=== PATIENT | female | born 1950 | race Caucasian/White ===

== ENCOUNTER 2016-12-04 18:31 | Emergency (ER) | payer MEDICAID, SELFPAY ==
[2016-12-04 18:40] VITALS: BP 144/85; PULSE 70; RESP 16; TEMP 98.8; O2SAT 100
--- NOTE | 2016-12-04 20:55 | ED PDOC ---
Lower Extremity Pain/Injury Time Seen by Provider: 12/04/16 19:30 Chief Complaint (Nursing): Lower Extremity Problem/Injury Chief Complaint (Provider): Left knee pain History Per: Patient History/Exam Limitations: no limitations Onset/Duration Of Symptoms: Days (3) Current Symptoms Are (Timing): Still Present Additional Complaint(s): Patient is a 66 y/o female with a past medical history of arthritis and hypertension presenting to the emergency department for worsening left leg pain ongoing for three days. Reports moderate pain behind her left knee, stating that the pain radiates down from her left knee to her foot. Mild swelling noted. Also notes taking two Tylenols today without any significant relief. Denies trauma or other complaints. PCP: Dr. Nayeli Thomas Past Medical History Reviewed: Historical Data, Nursing Documentation, Vital Signs Vital Signs: Last Vital Signs Temp 98.8 F 12/04/16 18:37 Pulse 70 12/04/16 18:37 Resp 16 12/04/16 18:37 BP 144/85 12/04/16 18:37 Pulse Ox 100 12/04/16 18:37 - Medical History PMH: HTN - Surgical History Other surgeries: masectomy - Family History Family History: States: Unknown Family Hx - Social History Current smoker - smoking cessation education provided: No Ex-Smoker (has not smoked in the last 12 months): No Alcohol: None Drugs: Denies - Home Medications Home Medications: Ambulatory Orders Medication Instructions Recorded Cane 1 each MC DAILY #1 each 12/04/16 Naproxen 1 tab PO Q12 PRN #14 tab 12/04/16 - Allergies Allergies/Adverse Reactions: Allergies Allergy/AdvReac Type Severity Reaction Status Date / Time No Known Allergies Allergy Verified 12/04/16 18:36 Review of Systems ROS Statement: Except As Marked, All Systems Reviewed And Found Negative Musculoskeletal: Positive for: Leg Pain (left leg pain and swelling) Physical Exam - Reviewed Nursing Documentation Reviewed: Yes Vital Signs Reviewed: Yes - Physical Exam Appears: Positive for: Well, Non-toxic, No Acute Distress Head Exam: Positive for: ATRAUMATIC, NORMAL INSPECTION, NORMOCEPHALIC Skin: Positive for: Normal Color, Warm, Dry Neck: Positive for: Normal Cardiovascular/Chest: Positive for: Regular Rate, Rhythm Respiratory: Negative for: Accessory Muscle Use, Respiratory Distress Extremity: Positive for: Normal ROM (able to flex and extend leg but with pain) , Tenderness (posteriorly to left leg, with minimal bony tenderness to knee), Swelling (moderate swelling noted to anterior aspect of left leg below knee). Negative for: Other (no erythema noted. negative janis's sign) Neurologic/Psych: Positive for: Alert, Oriented (x3) - ECG O2 Sat by Pulse Oximetry: 100 (RA) Pulse Ox Interpretation: Normal - Progress ED Course And Treament: xry of knee: no acute disease duplex: neg for dvt Medical Decision Making Medical Decision Making: Time: 19:51 Initial impression: Left knee pain Initial plan: * Right knee x-ray * Duplex lower extremities Patient was offered pain medication in the ER but declined. ~ Scribe Attestation: Documented by Jeannette Wilson, acting as a scribe for NANCY Ochoa. Provider Scribe Attestation: All medical record entries made by the Scribe were at my direction and personally dictated by me. I have reviewed the chart and agree that the record accurately reflects my personal performance of the history, physical exam, medical decision making, and the department course for this patient. I have also personally directed, reviewed, and agree with the discharge instructions and disposition. Disposition - Clinical Impression Clinical Impression: Arthritis - Patient ED Disposition Is Patient to be Admitted: No - Disposition Disposition: Routine/Home Disposition Time: 22:20 Condition: FAIR Prescriptions: Cane 1 each MC DAILY #1 each Naproxen 1 tab PO Q12 PRN #14 tab PRN Reason: Pain, Moderate (4-7) Instructions: Arthritis (ED) Forms: [facility] (Georgian)
--- NOTE | 2016-12-05 10:03 | US ---
PROCEDURE: Right lower extremity venous duplex Doppler. HISTORY: R/O DVT COMPARISON: None available. TECHNIQUE: Common femoral, superficial femoral, popliteal and posterior tibial veins were evaluated. Flow was assessed with color Doppler, compressibility, assessment of phasic flow and augmentation response. FINDINGS: COMMON FEMORAL VEIN: Unremarkable. SUPERFICIAL FEMORAL VEIN: Unremarkable. POPLITEAL VEIN: Unremarkable. POSTERIOR TIBIAL VEIN: Unremarkable. OTHER FINDINGS: None. IMPRESSION: No evidence of deep venous thrombosis in the right lower extremity. Preliminary interpretation of this examination was reported by [facility] at 10:26 p.m. on 12/04/2016. There is concurrence of this report with the preliminary interpretation.
--- NOTE | 2016-12-05 12:58 | RAD ---
PROCEDURE: Right Knee Radiographs. HISTORY: KNEE PAIN COMPARISON: None. FINDINGS: BONES: Normal. No fracture. JOINTS: Mild medial osteoarthritis with joint space narrowing and minimal marginal hypertrophy. No articular erosion. Lateral and patellofemoral compartments appear preserved. JOINT EFFUSION: None. OTHER FINDINGS: None. IMPRESSION: Mild medial osteoarthritis. Otherwise unremarkable.
== END 2016-12-04 22:30 | disposition home or self-care (01) ==
LOC: H.ER 18:31
DX: M17.11 Unilateral primary osteoarthritis, right knee (principal); I10 Essential (primary) hypertension